=== PATIENT | female | born 1995 | race Caucasian/White ===

== ENCOUNTER 2019-09-01 19:09 | Emergency (ER) | payer OTHER, SELFPAY ==
[2019-09-01 19:20] VITALS: BP 152/116; PULSE 123; RESP 15; TEMP 36.7; O2SAT 99; BMI 19.4
--- NOTE | 2019-09-01 19:22 | ED.ANXIETY ---
HPI - Anxiety <Portia Delaney PA-C - Last Filed: 09/01/19 21:21> General Chief Complaint: Anxiety Stated Complaint: anxiety, wt loss, not feeling well at all Time Seen by Provider: 09/01/19 19:15 Source: patient and family Mode of arrival: Ambulatory Limitations: no limitations History of Present Illness HPI narrative: This 24-year-old female comes to ED secondary to persistent and worsening anxiety/panic attacks, with more recent weight loss, maybe 7-8 lb over the last several weeks, and unable to sleep. She states that she has a long history of anxiety attacks where she will feel palpitations, numbness in her lips and body, in the setting of anxiety. She states this has been happening more frequently recently. She states that she has been under additional stress as she is getting soon and moving [place] the country (she is happy about this even though stressful). She states that symptoms have been worsening for at least several months, now also states she has not been eating secondary to discomfort with eating in her chest and throat area though no difficulty swallowing. This occurs after she eats, and she feels somewhat nauseated. She has not had any vomiting. She states that she always feels like she has a dry mouth. She has not had any recent upper respiratory symptoms or fever. She states at times her feet get very cold and ?purple? as well. She was visiting her fiancee in [place] and feels like symptoms have worsened, so came in because she recurrent today. She does not have any acutely worsening symptoms this evening. She states that she has tried donv-vrl-tmagnum Tums, tried melatonin and Benadryl for sleep without improvement. She states that she has generally been healthy aside from panic attacks, no PCP locally. She states that she has not had any previous w/u for sx and this concerns her as well. Mom notes that patient has a remote h/o anemia. She currently does not think she is , has menses now Related Data Allergies Allergy/AdvReac Type Severity Reaction Status Date / Time Penicillins [PENICILLINS] Allergy Unknown Verified 09/01/19 19:20 Review of Systems <Portia Delaney PA-C - Last Filed: 09/01/19 21:21> Review of Systems ROS Unobtainable: All systems reviewed & are unremarkable except as noted in HPI and below Patient History <Portia Delaney PA-C - Last Filed: 09/01/19 21:21> Medical History (Updated 09/01/19 @ 21:19 by Portia Delaney PA-C) Anemia (Chronic) Panic attacks (Chronic) Surgical History (Updated 09/01/19 @ 19:46 by Portia Delaney PA-C) S/P tonsillectomy (Resolved) Social History (Updated 09/01/19 @ 19:47 by Portia Delaney PA-C) Smoking Status: Never smoker Exam <Portia Delaney PA-C - Last Filed: 09/01/19 21:21> Narrative Exam Narrative: GENERAL APPEARANCE: Patient sitting comfortably, in no distress. HEENT: PERRL, EOMI, normal boropharynx NECK: Supple, trachea midline, normal swallow. No palpable mass LUNGS: Clear to auscultation bilaterally. HEART: Rate and rhythm regular without murmur, normal S1 and S2, no S3 or S4. ABDOMEN: Soft, NT, ND, + BS x 4 quadrants NEUROLOGIC: Alert and oriented, normal speech, and coordination. EXTREMITIES: No edema, no cyanosis, pedal pulses intact PSYCH: Patient maintains good eye contact, affect appropriate Initial Vital Signs Initial Vital Signs: Vital Signs Temperature 98.1 F 09/01/19 19:20 Pulse Rate 123 H 09/01/19 19:20 Respiratory Rate 15 09/01/19 19:20 Blood Pressure 152/116 H 09/01/19 19:20 Pulse Oximetry 99 09/01/19 19:20 <Dylon Pugh DO - Last Filed: 09/02/19 03:39> Initial Vital Signs Initial Vital Signs: Vital Signs Temperature 98.1 F 09/01/19 19:20 Pulse Rate 123 H 09/01/19 19:20 Respiratory Rate 15 09/01/19 19:20 Blood Pressure 152/116 H 09/01/19 19:20 Pulse Oximetry 99 09/01/19 19:20 Course <Portia Delaney PA-C - Last Filed: 09/01/19 21:21> Course Additional Information: Patient reports feeling more relaxed after Vistaril. After liquid antacid, she is able to tolerate some banana chips, yogourt, and cheese. Discussed that she should have longer term treatment for her anxiety and panic attacks, perhaps SSRI. Suspect chronic symptoms are exacerbated due to her significant stressors. She can continue Vistaril as needed to help with sleep, advised trial of OTC Pepcid along with liquid antacid as needed, and continuing small regular meals. Advised short-term follow-up with local PCP. She is agreeable with this plan as well as plan to return if any acutely worsening symptoms in the interim Orders Ordered: ED Orders 09/01/19 19:41 EKG-12 Lead Stat 09/01/19 19:55 Complete Blood Count AUTO DIFF Stat Comprehensive Metabolic Panel Stat Lipase Stat Thyroid Stimulating Hormone Stat 09/01/19 19:59 EKG-12 Lead Routine Discontinued Medications Al Hydrox/Mg Hydrox/Simethicone (Maalox Plus) 30 ml PO NOW ONE Stop: 09/01/19 19:42 Last Admin: 09/01/19 19:55 Dose: 30 ml Documented by: MMCFARL Hydroxyzine Pamoate (Vistaril) 25 mg PO NOW ONE Stop: 09/01/19 19:42 Last Admin: 09/01/19 19:55 Dose: 25 mg Documented by: MMCFARL Hydroxyzine Pamoate (Vistaril) 25 mg PO NOW ONE Stop: 09/01/19 21:14 Last Admin: 09/01/19 21:17 Dose: 25 mg Documented by: FRANCK Vital Signs Vital signs: Vital Signs - 8 hr 09/01/19 20:00 09/01/19 21:25 Pulse Rate 85 79 Respiratory Rate 16 14 Blood Pressure 122/73 Blood Pressure [Left Arm] 120/77 Pulse Oximetry 99 100 <Dylon Pugh DO - Last Filed: 09/02/19 03:39> Orders Ordered: ED Orders 09/01/19 19:41 EKG-12 Lead Stat 09/01/19 19:55 Complete Blood Count AUTO DIFF Stat Comprehensive Metabolic Panel Stat Lipase Stat Thyroid Stimulating Hormone Stat 09/01/19 19:59 EKG-12 Lead Routine Discontinued Medications Al Hydrox/Mg Hydrox/Simethicone (Maalox Plus) 30 ml PO NOW ONE Stop: 09/01/19 19:42 Last Admin: 09/01/19 19:55 Dose: 30 ml Documented by: MMCFARL Hydroxyzine Pamoate (Vistaril) 25 mg PO NOW ONE Stop: 09/01/19 19:42 Last Admin: 09/01/19 19:55 Dose: 25 mg Documented by: FRANCK Hydroxyzine Pamoate (Vistaril) 25 mg PO NOW ONE Stop: 09/01/19 21:14 Last Admin: 09/01/19 21:17 Dose: 25 mg Documented by: FRANCK Vital Signs Vital signs: Vital Signs - 8 hr 09/01/19 20:00 09/01/19 21:25 Pulse Rate 85 79 Respiratory Rate 16 14 Blood Pressure 122/73 Blood Pressure [Left Arm] 120/77 Pulse Oximetry 99 100 MDM - Anxiety <Portia Delaney PA-C - Last Filed: 09/01/19 21:21> Lab Data Attestation: I reviewed the patient's lab results. Result diagrams: 09/01/19 19:55 09/01/19 19:55 Labs: Lab Results 09/01/19 09/01/19 09/01/19 Range/Units 19:55 19:55 19:55 WBC 8.5 (4.5-11.0) X10^3/uL RBC 5.02 (4.0-5.2) X10^6/uL Hgb 14.7 (12.0-16.0) g/dL Hct 42.4 (36-46) % MCV 84.6 (80-100) fL MCH 29.3 (26-34) PG MCHC 34.7 (30-36) % RDW 12.8 (11.6-14.8) % Plt Count 168 (150-400) X10^3/uL Neut % (Auto) 81.5 H (50-75) % Lymph % (Auto) 10.8 L (25-40) % Smith % (Auto) 7.3 (3-14) % Eos % (Auto) 0.1 L (2-4) % Baso % (Auto) 0.3 (0-2) % Neut # (Auto) 6900 (9168-8968) /uL Lymph # (Auto) 900 L (8471-7727) /uL Smith # (Auto) 600 (0-900) /uL Eos # (Auto) 0 (0-450) /uL Baso # (Auto) 0 (0-100) /uL Sodium 141 (137-145) mmol/L Potassium 4.2 (3.4-5.1) mmol/L Chloride 105 (98-107) mmol/L Carbon Dioxide 22 (22-32) mmol/L BUN 14 (7-17) mg/dL Creatinine 0.60 (0.52-1.04) mg/dL Estimated GFR > 60.0 (>60) mL/min BUN/Creatinine Ratio 23.3 H (6-22) Glucose 93 (70-100) mg/dL Calcium 10.0 (8.4-10.2) mg/dL Total Bilirubin 1.0 (0.2-1.3) mg/dL AST 20 (14-36) IU/L ALT 13 (<35) IU/L Alkaline Phosphatase 60 (38-126) U/L Total Protein 8.5 H (6.3-8.2) g/dL Albumin 5.2 H (3.5-5.0) g/dL Globulin 3.3 (1.7-4.1) g/dL Albumin/Globulin Ratio 1.6 (1.0-2.8) Lipase 53 (23-300) U/L TSH 0.58 (0.47-4.68) uIU/mL ECG Data Attestation: I personally reviewed and interpreted this ECG as follows: (Sinus arrhythmia, rate 97) <Dylon Pugh DO - Last Filed: 09/02/19 03:39> Lab Data Labs: Lab Results 09/01/19 09/01/19 09/01/19 Range/Units 19:55 19:55 19:55 WBC 8.5 (4.5-11.0) X10^3/uL RBC 5.02 (4.0-5.2) X10^6/uL Hgb 14.7 (12.0-16.0) g/dL Hct 42.4 (36-46) % MCV 84.6 (80-100) fL MCH 29.3 (26-34) PG MCHC 34.7 (30-36) % RDW 12.8 (11.6-14.8) % Plt Count 168 (150-400) X10^3/uL Neut % (Auto) 81.5 H (50-75) % Lymph % (Auto) 10.8 L (25-40) % Smith % (Auto) 7.3 (3-14) % Eos % (Auto) 0.1 L (2-4) % Baso % (Auto) 0.3 (0-2) % Neut # (Auto) 6900 (3726-7772) /uL Lymph # (Auto) 900 L (8200-3709) /uL Smith # (Auto) 600 (0-900) /uL Eos # (Auto) 0 (0-450) /uL Baso # (Auto) 0 (0-100) /uL Sodium 141 (137-145) mmol/L Potassium 4.2 (3.4-5.1) mmol/L Chloride 105 (98-107) mmol/L Carbon Dioxide 22 (22-32) mmol/L BUN 14 (7-17) mg/dL Creatinine 0.60 (0.52-1.04) mg/dL Estimated GFR > 60.0 (>60) mL/min BUN/Creatinine Ratio 23.3 H (6-22) Glucose 93 (70-100) mg/dL Calcium 10.0 (8.4-10.2) mg/dL Total Bilirubin 1.0 (0.2-1.3) mg/dL AST 20 (14-36) IU/L ALT 13 (<35) IU/L Alkaline Phosphatase 60 (38-126) U/L Total Protein 8.5 H (6.3-8.2) g/dL Albumin 5.2 H (3.5-5.0) g/dL Globulin 3.3 (1.7-4.1) g/dL Albumin/Globulin Ratio 1.6 (1.0-2.8) Lipase 53 (23-300) U/L TSH 0.58 (0.47-4.68) uIU/mL Discharge Plan Departure Patient Disposition: Home Clinical Impression: Panic attacks, Recent weight loss Acid reflux Qualifiers: Esophagitis presence: esophagitis presence not specified Qualified Code(s): K21.9 - Gastro-esophageal reflux disease without esophagitis Discharge Date/Time: 09/01/19 21:25 Instructions: DI for Gastroesophageal Reflux Disease (GERD), DI for Anxiety -- Adult, DI for Panic Disorder Activity Restrictions/Additional Instructions: I think that your symptoms are mainly caused by having lots of stressors that are exacerbating your chronic panic attacks. You can continue the hydroxyzine (Vistaril) if needed during the day for anxiety/panic attacks, and you can take up to 3 or 4 tablets at bedtime if you need to for sleep. Please start lcdo-uiy-ajyiqix Pepcid (famotidine) once daily, and continue to use a liquid antacid, i.e. Maalox or Mylanta, as needed for your symptoms. You can also try the Maalox or Mylanta before eating to see if this is helpful. Eat frequent, small meals to help keep some food in your stomach which should help you feel better. Try to walk or do some exercise and get fresh air daily to help with your stress. You should return as we talked about if you have any acutely worsening symptoms while you are waiting to see your new PCP. First thing tomorrow please call the [facility] at [phone]. Let them know you were seen in the emergency room and we would like to set up follow-up for you with a new PCP next week. [facility] clinic in [facility] is usually able to see patients quickly as well. If you aren't seen at a hospital clinic, sign a records release so they can get your records and labwork from today.
[2019-09-01] MEDS: MAG HYDROX/ALUM/SIMETH 30 ML UDC PO (19:55)
[2019-09-01] MEDS: hydrOXYzine pamoate 25 MG CAPSULE PO ×2 (19:55→21:17)
[2019-09-01 20:00] VITALS: BP 120/77; PULSE 85; RESP 16; O2SAT 99
[2019-09-01 20:07] LABS: Add Manual Diff / Slide Review NO; Basophils Absolute Auto 0 /uL (0-100); Basophils Percent Auto 0.3 % (0-2); Eosinophils Absolute Auto 0 /uL (0-450); Eosinophils Percent Auto 0.1 % (2-4); Hematocrit 42.4 % (36-46); Hemoglobin 14.7 g/dL (12.0-16.0); Lymphocytes Absolute Auto 900 /uL (1100-4500); Lymphocytes Percent Auto 10.8 % (25-40); Mean Corpuscular HGB Conc 34.7 % (30-36); Mean Corpuscular Hemoglobin 29.3 PG (26-34); Mean Corpuscular Volume 84.6 fL (80-100); Monocytes Absolute Auto 600 /uL (0-900); Monocytes Percent Auto 7.3 % (3-14); Neutrophils Absolute Auto 6900 /uL (1500-7000); Neutrophils Percent Auto 81.5 % (50-75); Platelet Count 168 X10^3/uL (150-400); Red Blood Cell Count 5.02 X10^6/uL (4.0-5.2); Red Cell Distribution Width 12.8 % (11.6-14.8); White Blood Cell Count 8.5 X10^3/uL (4.5-11.0)
[2019-09-01 20:23] LABS: Alanine Aminotransferase 13 IU/L (<35); Albumin 5.2 g/dL (3.5-5.0); Albumin Globulin Ratio 1.6 (1.0-2.8); Alkaline Phosphatase 60 U/L (38-126); Aspartate Aminotransferase 20 IU/L (14-36); BUN Creatinine Ratio 23.3 (6-22); Blood Urea Nitrogen 14 mg/dL (7-17); Carbon Dioxide 22 mmol/L (22-32); Chloride 105 mmol/L (98-107); Estimated Glomerular Filt Rate > 60.0 mL/min (>60); Globulin 3.3 g/dL (1.7-4.1); Glucose 93 mg/dL (70-100); HEMOLYSIS < 15 (0-50); Lipase 53 U/L (23-300); Potassium 4.2 mmol/L (3.4-5.1); Sodium 141 mmol/L (137-145); Total Protein 8.5 g/dL (6.3-8.2)
[2019-09-01 20:54] LABS: Thyroid Stimulating Hormone 0.58 uIU/mL (0.47-4.68)
[2019-09-01 21:25] VITALS: BP 122/73; PULSE 79; RESP 14; O2SAT 100
--- NOTE | 2019-09-02 18:37 | PC.NURSE ---
Pt's mother called ([phone]) stating that prescription that was supposed to be electronically sent was not. Discharge reflects prescription directions but not that prescription was sent. Discussed with Dr. Pugh who ordered hydroxizine hcl 25 mg po q 4-6 hours prn anxiety. #15, no refills. Called [facility] and called in prescription to pharmacist. Called back mother and updated that prescription was being filled. Encouraged to f/u as needed and indicated and return for any needs or concerns.
== END 2019-09-01 21:25 | disposition home or self-care (01) ==
PROVIDERS: Emergency Provider Internal Medicine
DX: K21.9 Gastro-esophageal reflux disease without esophagitis (principal); F41.0 Panic disorder [episodic paroxysmal anxiety]
CPT/HCPCS: 36415; 80053; 83690; 84443; 85025; 93005; 99283; 99284

== ENCOUNTER → 2020-01-17 11:44 | Outpatient (CLI) | payer OTHER, SELFPAY ==
[2020-01-17 16:31] LABS: Urine N gonorrhoeae NOT DETECTED
[2020-01-17 17:00] LABS: Urine Chlamydia NOT DETECTED
== END ==
PROVIDERS: Visit Provider Physician Assistant
DX: Z11.3 Encounter for screening for infections with a predominantly sexual mode of transmission (principal); Z20.2 Contact with and (suspected) exposure to infections with a predominantly sexual mode of transmission; N89.8 Other specified noninflammatory disorders of vagina
CPT/HCPCS: 87210; 87491; 87591

== ENCOUNTER → 2020-01-17 12:42 | Outpatient (CLI) | payer OTHER, SELFPAY ==
[2020-01-18 04:36] LABS: HBsAg Screen Negative (Negative); Hepatitis A Antibody IgM Negative (Negative); Hepatitis B Core Antibody IgM Negative (Negative); Hepatitis C Antibody <0.1 s/co ratio (0.0-0.9)
[2020-01-18 07:08] LABS: RPR Screen Non Reactive (Non Reactive)
[2020-01-18 21:07] LABS: HSV I/II IgM 1.26 Ratio (0.00-0.90)
[2020-01-18 21:23] LABS: HIV 1 & 2 Ab/Ag 4th Gen Combo NEGATIVE (NEGATIVE)
== END ==
PROVIDERS: Referring Provider Physician Assistant; Visit Provider Physician Assistant
DX: Z11.3 Encounter for screening for infections with a predominantly sexual mode of transmission (principal); Z20.2 Contact with and (suspected) exposure to infections with a predominantly sexual mode of transmission; N89.8 Other specified noninflammatory disorders of vagina
CPT/HCPCS: 36415; 80074; 86592; 86694; 87210; 87389; 87491; 87591

== ENCOUNTER → 2020-01-19 16:06 | Outpatient (CLI) | payer OTHER, SELFPAY | PROVIDERS: Visit Provider Physician Assistant | DX: Z11.3 Encounter for screening for infections with a predominantly sexual mode of transmission (principal) | CPT/HCPCS: 86695; 86696 ==

== ENCOUNTER 2020-06-26 09:38 | Emergency (ER) | payer MEDICAID, SELFPAY ==
[2020-06-26 09:53] VITALS: BP 120/72; PULSE 68; RESP 14; TEMP 36.4; O2SAT 100; BMI 28.4
[2020-06-26] MEDS: TET,DIPH,PERTUSS(ACELL),VAC/PF 0.5 ML SYRINGE IM (12:40)
[2020-06-26 12:44] VITALS: BP 112/73; PULSE 68; RESP 14; O2SAT 98
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
== END 2020-06-26 14:28 | disposition home or self-care (01) ==
PROVIDERS: Emergency Provider Nurse Practitioner Family
DX: S09.93XA Unspecified injury of face, initial encounter (principal); W50.3XXA Accidental bite by another person, initial encounter; Z23 Encounter for immunization
CPT/HCPCS: 70486; 81025; 90471; 99284; 90715

== ENCOUNTER 2024-07-24 02:57 | Emergency (ER) | payer SELFPAY ==
[2024-07-24 03:14] VITALS: BP 138/85; PULSE 98; RESP 16; TEMP 36.9; O2SAT 100; BMI 21.6
[2024-07-24 04:01] LABS: Influenza A - CEPHEID Flu A POSITIVE (NEGATIVE); Influenza B - CEPHEID Flu B NEGATIVE (NEGATIVE); Respiratory Syncytial Virus Negative (Negative)
[2024-07-24 04:04] LABS: COVID-19 CEPHEID 4-PLEX PCR Negative (Negative)
[2024-07-24 05:34] VITALS: BP 127/87
--- NOTE | 2024-07-24 05:36 | ED.URI ---
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 No known exposure to persons with COVID or influenza. Not currently taking any antibiotics. Not taking any antiviral medications. No history of chronic heart or lung disease, no history of asthma, does not have shortness of breath or chest pain. She does have some back pain. No dysuria or frequency of urination or urgency to urinate. Denies chest pain including with deep breathing. Related Data Previous Rx's Medication Instructions Recorded metronidazole 500 mg tablet 500 mg PO BID #14 tabs 01/17/20 (Flagyl) doxycycline hyclate 100 mg capsule 100 mg PO BID #14 caps 06/26/20 oseltamivir 75 mg capsule (Tamiflu) 75 mg PO BID 5 days #10 caps 07/24/24 Allergies Allergy/AdvReac Type Severity Reaction Status Date / Time Penicillins [PENICILLINS] Allergy Unknown Verified 01/17/20 11:29 Patient History Medical History Anemia Panic attacks Screen for STD (sexually transmitted disease) Surgical History S/P tonsillectomy Social History Smoking Status: Never smoker Smoking Status: Never smoker alcohol intake frequency: holidays/special occasions only Exam Narrative Exam Narrative: GENERAL: Well-developed patient, in mild distress. HEAD: Atraumatic. Normocephalic. EYES: Pupils equal round and reactive. Extraocular motions intact. No scleral icterus. No injection or drainage. ENT: Nose without bleeding, purulent drainage. Throat without erythema, tonsillar hypertrophy or exudate. Airway patent. NECK: Trachea midline. Non tender CARDIOVASCULAR: Regular rate and rhythm without murmurs, gallops, or rubs. RESPIRATORY: Clear to auscultation. Breath sounds equal bilaterally. No wheezes, rales, or rhonchi. GASTROINTESTINAL: Abdomen soft, non-tender, nondistended. EXTREMITIES: No edema or joint tenderness. BACK: Nontender without deformity or crepitance. No flank tenderness. NEURO: AOx3. Motor functions grossly nonfocal SKIN: No rash or erythema of visible areas Initial Vital Signs Initial Vital Signs: Vital Signs Temperature 98.4 F 07/24/24 03:14 Pulse Rate 98 H 07/24/24 03:14 Respiratory Rate 16 07/24/24 03:14 Blood Pressure 138/85 07/24/24 03:14 Pulse Oximetry 100 07/24/24 03:14 Oxygen Delivery Method Room Air 07/24/24 03:14 Course Orders Ordered: ED Orders 07/24/24 03:20 Covid-19 + FLU A/B + RSV - PCR Stat Discontinued Medications Oseltamivir Phosphate (Oseltamivir 75 Mg Capsule) 75 mg PO NOW ONE Stop: 07/24/24 05:50 Last Admin: 07/24/24 06:11 Dose: 75 mg Documented By: HNG Vital Signs Vital signs: Vital Signs - 8 hr 07/24/24 03:14 07/24/24 05:34 07/24/24 06:00 Temperature 98.4 F Pulse Rate 98 H 89 Respiratory Rate 16 18 Blood Pressure 138/85 127/87 Pulse Oximetry 100 98 Oxygen Delivery Method Room Air 07/24/24 06:00 Temperature Pulse Rate Respiratory Rate Blood Pressure 121/74 Pulse Oximetry Oxygen Delivery Method MDM - URI/Sore Throat Lab Data Attestation: I reviewed the patient's lab results. Lab results narrative: COVID negative, influenza A positive, influenza B negative, RSV negative. Labs: Lab Results 07/24/24 Range/Units 03:20 SARS-CoV-2 (PCR) Negative (Negative) Influenza A (RT-PCR) Flu a positive H (NEGATIVE) Influenza B (RT-PCR) Flu b negative (NEGATIVE) RSV (PCR) Negative (Negative) [facility] Narrative Medical decision making narrative: 29-year-old female with 4 days duration of flu-like illness symptoms, back pain without dysuria, no chest discomfort. Swab sent from triage positive for influenza a, negative for influenza B, negative for COVID, negative for RSV. Discussion of Tamiflu, usually not indicated after 48 hours of illness, however she does work as a dental hygienist and is interested in return to work, could consider Tamiflu and return to work in the next couple of days, hopefully less infectious with further course of influenza and less infectious due to antiviral therapy, though this is not known by studies. She would like to try Tamiflu for this reason. First oral dose Tamiflu given in the emergency department, prescription sent to her pharmacy. We discussed urinalysis, declined. We discussed chest x-ray, declined. Discharged home with family. Discharge Plan Departure Patient Disposition: Home Clinical Impression: Influenza A Activity Restrictions/Additional Instructions: History of last few days influenza like symptoms, cough and sore throat, also with back pain, some loose stools. Swab sent from triage was positive for influenza A, negative for influenza B, negative for COVID, negative for RSV. Tamiflu antiviral medication discussed, usually less effective once symptoms have been beyond 48 hours, less likely to shorten the duration or severity of illness when started this late. 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 You did elect to start Tamiflu, first dose in the emergency department, prescription sent for further course to your pharmacy. Take Tylenol and or Motrin as needed for muscle aches. Consider off work for the next couple of days, allow the Tamiflu antiviral to have some effect, hopefully would be less infectious to your client's at your dental hygienist job, though this is not for sure known in the literature. Take Tamiflu as directed for full 5 day course. We discussed urinalysis, declined for now. We discussed chest x-ray, declined for now. Drink plenty of fluids, take Tylenol and or Motrin as needed for discomfort. Recheck in clinic if not improved early next week. Return earlier to this/nearest emergency department for any change worsening symptoms or any concerns prior Prescriptions: New oseltamivir [Tamiflu] 75 mg capsule 75 mg PO BID 5 Days Qty: 10 0RF No Action metronidazole [Flagyl] 500 mg tablet 500 mg PO BID Qty: 14 0RF doxycycline hyclate 100 mg capsule 100 mg PO BID Qty: 14 0RF Stand Alone Forms: Patient Portal/API/Survey, Work Release Note
[2024-07-24 06:00] VITALS: BP 121/74; PULSE 89; RESP 18; O2SAT 98
[2024-07-24] MEDS: OSELTAMIVIR 75 MG CAPSULE PO (06:11)
== END 2024-07-24 06:17 | disposition home or self-care (01) ==
PROVIDERS: Emergency Provider Emergency Medicine
DX: J10.1 Influenza due to other identified influenza virus with other respiratory manifestations (principal)
CPT/HCPCS: 0241U; 99283